=== PATIENT | female | born 1970 | race African-American/Black ===

== ENCOUNTER 2017-01-07 13:45 | Emergency (ER) | payer MEDICARE, OTHER ==
[~2017-01-07] VITALS: Ht 162.6 cm; Wt 100.0 kg
[~2017-01-07 13:45] MED LIST: MEDR150P IM; NAPR500 PO
[2017-01-07 14:01] VITALS: BP 175/81; PULSE 76; RESP 16; TEMP 97.1; O2SAT 98
--- NOTE | 2017-01-07 16:29 | PD ---
HPI Chief Complaint: Cold / Flu Symptoms Time Seen by Provider: 16:29 Travel History International Travel<30 days: No Contact w/Intl Traveler<30days: No Traveled to known affect area: No History of Present Illness HPI 46-year-old female presents to the emergency Department with complaint of nasal congestion, cough, throat irritation, sneezing since yesterday. Denies fever, chills, nausea, vomiting. Reports voice is hoarse. Denies lump in throat, difficulty swallowing, unusual drooling. Denies chest pain, chest tightness, shortness of breath. Denies wheezing. Has not taking any medications or tried any treatments to alleviate her symptoms. Her son is sick with similar symptoms and was seen yesterday and diagnosed with bronchitis. No known relieving or aggravating factors. Allergies to Darvocet and Lortab. Denies significant past medical history. No other modifying factors or associated signs and symptoms. PFSH Past Medical History Arthritis: Yes Blood Disorders: No Cancer: No Cardiovascular Problems: Yes (ASD REPA[employer] INFANT) Diminished Hearing: No Endocrine: No Gastrointestinal Disorders: No Genitourinary: No Hepatitis: Yes (HEPITITIS B) Immune Disorder: No Musculoskeletal: No Neurologic: No Psychiatric: No Reproductive: No Respiratory: No ?: Not LMP: 12/30/16 Menopausal: No : 3 Para: 2 Miscarriage: 0 : 0 Ectopic : No Ovarian Cysts: No Dilation and Curettage (D&C): Yes Tubal Ligation: No Past Surgical History Cardiac Surgery: Yes ("hole in heart) Section: No Gynecologic Surgery: Yes ( 2000) Hysterectomy: No Other Surgery: Yes Social History Alcohol Use: No Tobacco Use: No Substance Use: No Allergies-Medications (Allergen,Severity, Reaction): Coded Allergies: Darvocet-N 100 (Verified Allergy, Unknown, 01/07/17) Lortab (Verified Adverse Reaction, Mild, Itching, 01/07/17) denies Reported Meds & Prescriptions Reported Meds & Active Scripts Active Tessalon Perles (Benzonatate) 100 Mg Cap 100 Mg PO TID PRN Nasonex Nasal [place] (Mometasone Furoate) 50 Mcg/Act Naspr 2 [place] EACH NARE DAILY PRN Naprosyn (Naproxen) 500 Mg Tab 500 Mg PO Q12HR PRN Depoprovera 150 Mg Vial (Medroxyprogesterone Acetate) 150 Mg/Ml Susp 150 Mg IM Q90D Review of Systems Except as stated in HPI: all other systems reviewed are Neg Physical Exam Narrative GENERAL: Well-nourished, well-developed [place] female patient, in no acute distress; afebrile, nontoxic-appearing SKIN: Warm and dry. No rash. HEAD: Atraumatic. Normocephalic. EYES: Pupils equal and round at 3 mm with brisk reaction. No scleral icterus. No injection or drainage. PERRLA. ENT: Mucosa pink and moist. No erythema or exudates. No uvular edema. No uvular , palatal, or tonsillar deviation. Airway patent. Voice is hoarse. EARS: Bilateral pinnae and external canals appear within normal limits. Bilateral tympanic membranes without erythema, dullness or perforation. NECK: Trachea midline. No anterior cervical lymphadenopathy or tenderness on palpation. CARDIOVASCULAR: Regular rate and rhythm. No murmur appreciated. RESPIRATORY: No accessory muscle use. Clear to auscultation. Breath sounds equal bilaterally. GASTROINTESTINAL: Abdomen soft, non-tender, nondistended. Hepatic and splenic margins not palpable. Bowel sounds are active 4 quadrants. MUSCULOSKELETAL: No obvious deformities. No clubbing. No cyanosis. No edema. NEUROLOGICAL: Awake and alert. Oriented 3. No obvious cranial nerve deficits. Motor grossly within normal limits. Normal speech. Moves all extremities. 5/5 strength to all extremities. PSYCHIATRIC: Appropriate mood and affect; insight and judgment normal. Data Data Last Documented VS Vital Signs Date Time Temp Pulse Resp B/P Pulse Ox O2 Delivery O2 Flow Rate FiO2 01/07/17 15:46 Room Air 01/07/17 14:01 97.1 76 16 175/[address] [facility] Medical Decision Making Medical Screen Exam Complete: Yes Emergency Medical Condition: Yes Medical Record Reviewed: Yes Differential Diagnosis Viral illness, bronchitis, sinusitis Narrative Course 46-year-old female physical examination consistent with viral illness. She is afebrile and nontoxic-appearing. Lungs are clear and equal throughout. Discussed viral illness and symptom management and patient verbalizes understanding and agreement. Tessalon Perles, Nasonex nasal spray prescribed for home. Patient is medically cleared and stable for discharge. Discussed reasons to return to the emergency department. Instructed patient to follow up with primary care provider. Patient agrees with treatment plan. The patients vital signs are stable and the patient is stable for outpatient follow-up and treatment. Patient discharged home, stable and in no acute distress. Diagnosis Primary Impression: Viral illness Referrals: Primary Care Physician Patient Instructions: Cold Symptoms (ED), General Instructions, Safe Use of Cough and Cold Medicines (ED) Departure Forms: Tests/Procedures, Work Release Enter return to work date: Jan 09, 2017 Additional Instructions: Ibuprofen or Tylenol as instructed and as needed for fever/pain [id number] cough and cold medications as directed and as needed for symptom management Get plenty of sleep/rest Drink plenty of fluids to prevent dehydration; popsicles and Gatorade Use an air humidifier/turn off ceiling fans Follow-up with primary care provider Return immediately to the emergency department with worsening of symptoms Med/Other Pt SpecificInfo: Prescription(s) given Scripts Benzonatate (Tessalon Perles)100 Mg [id number] Mg PO TID PRN (COUGH) #20 CAP Ref 0 Prov:Karina Hwang 01/07/17 Mometasone Nasal [place] (Nasonex Nasal [place])50 Mcg/Act Naspr2 [place] EACH NARE DAILY PRN (NASAL CONGESTION) #1 BOTTLE Ref 0 Prov:Karina Hwang 01/07/17 Disposition: 01 DISCHARGE HOME Condition: Stable Karina Hwang Jan 07, 2017 16:29
[2017-01-07] MEDS ORDERED: MOME17I EACH NARE (16:36)
[2017-01-07] MEDS ORDERED: BENZ100 PO (16:36)
== END 2017-01-07 17:13 | disposition home or self-care (01) ==
LOC: NEPB 13:45
DX: B34.9 Viral infection, unspecified (principal)
CPT/HCPCS: 99283

== ENCOUNTER 2017-09-30 17:32 | Emergency (ER) | payer MEDICARE, OTHER ==
[~2017-09-30] VITALS: Ht 165.1 cm; Wt 110.0 kg
[~2017-09-30 17:32] MED LIST changes: +BENZ100 PO; +MOME17I EACH NARE
[2017-09-30 17:34] VITALS: BP 139/91; PULSE 92; RESP 26; TEMP 98.7; O2SAT 100
--- NOTE | 2017-09-30 18:09 | PD ---
HPI Chief Complaint: Chest Pain Time Seen by Provider: 17:53 Travel History International Travel<30 days: No Contact w/Intl Traveler<30days: No Traveled to known affect area: No History of Present Illness HPI The patient was seen and examined in the presence of the nurse. This patient complains of chest pain. Started last night. Duration is one day. She reports severity is moderate however, she is sound asleep in the room when I go into evaluate her. During questioning she nods off and falls asleep. She denies any sedating medication. She says is because she didn't get much sleep last night. Pain is readily reproducible with palpation in the right upper chest. There is no left-sided pain is not exertional. It's not pleuritic. No alleviating factors. Pain is exacerbated with pressure on the chest wall PFSH Past Medical History Arthritis: Yes Blood Disorders: No Cancer: No Cardiovascular Problems: Yes Diminished Hearing: No Endocrine: No Gastrointestinal Disorders: No Genitourinary: No Hepatitis: Yes (HEPITITIS B) Immune Disorder: No Musculoskeletal: No Neurologic: No Psychiatric: No Reproductive: No Respiratory: No ?: Not Menopausal: No : 3 Para: 2 Miscarriage: 0 : 0 Ectopic : No Ovarian Cysts: No Dilation and Curettage (D&C): Yes Tubal Ligation: No Past Surgical History Cardiac Surgery: Yes ("hole in heart) Section: No Gynecologic Surgery: Yes ( 2000) Hysterectomy: No Other Surgery: Yes Social History Alcohol Use: No Tobacco Use: No Substance Use: No Allergies-Medications (Allergen,Severity, Reaction): Coded Allergies: acetaminophen (Unverified Allergy, Unknown, 07/03/17) propoxyphene (Unverified Allergy, Unknown, 07/03/17) hydrocodone (Unverified Adverse Reaction, Mild, Itching, 07/03/17) denies Reported Meds & Prescriptions Reported Meds & Active Scripts Active Tessalon Perles (Benzonatate) 100 Mg Cap 100 Mg PO TID PRN Nasonex Nasal [place] (Mometasone Furoate) 50 Mcg/Act Naspr 2 [place] EACH NARE DAILY PRN Naprosyn (Naproxen) 500 Mg Tab 500 Mg PO Q12HR PRN Depoprovera 150 Mg Vial (Medroxyprogesterone Acetate) 150 Mg/Ml Susp 150 Mg IM Q90D Review of Systems General / Constitutional: No: Fever Eyes: No: Visual changes HENT: No: Headaches Cardiovascular: Positive: Chest Pain or Discomfort Respiratory: No: Shortness of Breath Gastrointestinal: No: Abdominal Pain Genitourinary: No: Dysuria Musculoskeletal: No: Pain Skin: No Rash Neurologic: No: Weakness Psychiatric: No: Depression Endocrine: No: Polydipsia Hematologic/Lymphatic: No: Easy Bruising Physical Exam Narrative GENERAL: Well-nourished, well-developed patient in no apparent distress. SKIN: Focused skin assessment reveals no rash and nodules. Skin is Warm and dry. HEAD: Atraumatic. Normocephalic. EYES: Pupils equal and round. No scleral icterus. No injection or drainage. ENT: No nasal bleeding or discharge. Mucous membranes pink and moist. NECK: Trachea midline. No JVD. CARDIOVASCULAR: Regular rate and rhythm. No murmur appreciated. RESPIRATORY: No accessory muscle use. Clear to auscultation. Breath sounds equal bilaterally. GASTROINTESTINAL: Abdomen soft, non-tender, nondistended. Hepatic and splenic margins not palpable. MUSCULOSKELETAL: No obvious deformities. No clubbing. No cyanosis. No edema. Readily reproducible right upper chest wall tenderness NEUROLOGICAL: Awake and alert. No obvious cranial nerve deficits. Motor grossly within normal limits. Normal speech. PSYCHIATRIC: Appropriate mood and affect; insight and judgment normal. Data Data Last Documented VS Vital Signs Date Time Temp Pulse Resp B/P (MAP) Pulse Ox O2 Delivery O2 Flow Rate FiO2 09/30/17 17:45 96 Room Air 09/30/17 17:34 98.7 92 26 139/91 (107) Orders Orders Electrocardiogram (09/30/17 ) Chest, Single Ap (09/30/17 ) Ed Discharge Order (09/30/17 18:53) [facility] Medical Decision Making Medical Screen Exam Complete: Yes Emergency Medical Condition: Yes Medical Record Reviewed: Yes Differential Diagnosis Differential diagnosis includes AK, angina, pericarditis, pleurisy, GERD, anxiety. Narrative Course I have reviewed the patient's electronic medical record. I reviewed her EKG which shows sinus rhythm and no ST elevation or ectopy I reviewed her chest x-ray which is negative for acute process I went to reevaluate her once again she is sound asleep Her chest pain is clearly musculoskeletal and noncardiac It's readily reproducible on palpation Recommend she follow up with primary care to discuss it Diagnosis Primary Impression: Musculoskeletal chest pain Additional Instructions: The patient was advised to follow up with their physician and return if they worsen. Med/Other Pt SpecificInfo: Other Disposition: 01 DISCHARGE HOME Condition: Stable Nino Vasquez MD Sep 30, 2017 18:09
--- NOTE | 2017-09-30 18:23 | RADRPT ---
EXAM DATE/TIME: 09/30/2017 18:06 [facility] COMPARISON: No previous studies available for comparison. INDICATIONS : Cough, chest pain, congestion for 2 days. MEDICAL HISTORY : None. SURGICAL HISTORY : Open heart ENCOUNTER: Initial ACUITY: 2 days PAIN SCORE: 9/10 LOCATION: middle Chest FINDINGS: Portable AP view of the chest demonstrates a normal-sized cardiac silhouette. No effusion, consolidat ion, or pneumothorax is visualized. The bones and soft tissues demonstrate no acute abnormality. Lung s are underinflated with mild atelectasis at the bases. EKG lines overlie the patient. Sternotomy wir es are present. CONCLUSION: Underinflated examination mild atelectasis at the lung bases. Otherwise, no acute cardiopulmonary abn ormality is identified. Vicente Melendez MD on September 30, 2017 at 18:20 Board Certified Radiologist. This report was verified electronically.
--- NOTE | 2017-10-01 19:33 | EKG ---
Date Performed: 09/30/2017 Time Performed: 18:05:43 PTAGE: 46 years EKG: Sinus rhythm POSSIBLE LEFT ATRIAL ENLARGEMENT POSSIBLE RIGHT VENTRICULAR CONDUCTION DELAY NONSPECIFIC T-WAVE ABNO RMALITY BORDERLINE ECG Since PREVIOUS TRACING , no significant change noted PREVIOUS TRACIN08/20/2010 11.06 DOCTOR: Tracey Yanez Interpretating Date/Time 10/01/2017 19:32:09
== END 2017-09-30 20:05 | disposition home or self-care (01) ==
LOC: NEPE 17:32
DX: R07.89 Other chest pain (principal); R94.31 Abnormal electrocardiogram [ECG] [EKG]
CPT/HCPCS: 71010; 93005

== ENCOUNTER 2017-11-17 15:14 | Emergency (ER) | payer MEDICARE, OTHER ==
[~2017-11-17] VITALS: Ht 165.1 cm; Wt 108.0 kg
[2017-11-17 15:17] VITALS: BP 131/71; PULSE 89; RESP 15; TEMP 99.4; O2SAT 98
[2017-11-17] MEDS ORDERED: SODIUM CHLORID 0.9% 500 ML INJ 500 ML IV ONE (15:45)
[2017-11-17] MEDS ORDERED: DEXAMETHASONE SOD PHOS 4 MG/ML VIAL IV PUSH ONE (15:45)
[2017-11-17] MEDS ORDERED: SODIUM CHLORIDE 0.9% FLUSH 10 ML FLUSH IVF PRN (15:45)
[2017-11-17] MEDS ORDERED: DIAZEPAM 5 MG TAB PO ONE (15:45)
[2017-11-17] MEDS ORDERED: MORPHINE SULFATE 4 MG/ML INJ IV PUSH ONE (15:45)
[2017-11-17 15:50] VITALS: BP_SYST 102; BP_SYST 120; BP_DIAS 80; BP_DIAS 83; PULSE 82; RESP 19; O2SAT 98
--- NOTE | 2017-11-17 15:52 | PD ---
HPI Chief Complaint: Chest Pain Time Seen by Provider: 15:30 Travel History International Travel<30 days: No Contact w/Intl Traveler<30days: No Traveled to known affect area: No History of Present Illness HPI The patient is a 47-year-old [place] female who presents emergency department for right sided neck pain and shoulder pain of 2 days' duration. The patient states she developed some right sided neck pain over the right clavicle and right trapezius 2 days ago. The pain is worse when she rotates her head to the right as well as certain movements of the right upper extremity. The pain is sharp, pulsating, feels like muscle spasms. She is had similar muscle spasms in the past, however, has not had an to this extent. She denies any left-sided chest pain, shortness of breath, nausea, vomiting, or diaphoresis. She also complains of bilateral lower extremity edema for 4 days. Edema is worse during the day, slightly better upon waking in the morning. She does have a history of similar edema in the past, denies any history DVT or pulmonary embolism. The patient's symptoms are moderate, worsen movement, and there are no current alleviating factors. PFSH Past Medical History Arthritis: Yes Blood Disorders: No Cancer: No Cardiovascular Problems: Yes Diminished Hearing: No Endocrine: No Gastrointestinal Disorders: No Genitourinary: No Hepatitis: Yes (HEPITITIS B) Immune Disorder: No Musculoskeletal: No Neurologic: No Psychiatric: No Reproductive: No Respiratory: No ?: Not LMP: 10/31/17 Menopausal: No : 3 Para: 2 Miscarriage: 0 : 0 Ectopic : No Ovarian Cysts: No Dilation and Curettage (D&C): Yes Tubal Ligation: No Past Surgical History Cardiac Surgery: Yes ("hole in heart) Section: Yes Gynecologic Surgery: Yes ( 2000) Hysterectomy: No Other Surgery: Yes Social History Alcohol Use: No Tobacco Use: No Substance Use: No Allergies-Medications (Allergen,Severity, Reaction): Coded Allergies: propoxyphene (Unverified Allergy, Unknown, 11/17/17) Reported Meds & Prescriptions Reported Meds & Active Scripts Active No Active Prescriptions or Reported Medications Review of Systems Except as stated in HPI: all other systems reviewed are Neg HENT: Positive: Neck Pain, No: Headaches, Neck Stiffness Cardiovascular: No: Chest Pain or Discomfort, Diaphoresis Respiratory: No: Shortness of Breath Gastrointestinal: No: Nausea, Vomiting Musculoskeletal: Positive: Limited ROM, Edema, Pain Skin: No Rash Neurologic: No: Paresthesia, Sensory Disturbance Physical Exam Narrative GENERAL: Awake, alert, pleasant 47 year-old female who appears her stated age and is in no acute respiratory distress. SKIN: Focused skin assessment warm/dry. HEAD: Atraumatic. Normocephalic. EYES: Pupils equal and round. No scleral icterus. No injection or drainage. ENT: No nasal bleeding or discharge. Mucous membranes pink and moist. NECK: Trachea midline. No JVD. Tenderness to palpation of the right paravertebral muscle, the right trapezius, and right clavicle. CARDIOVASCULAR: Regular rate and rhythm. No murmur appreciated. RESPIRATORY: No accessory muscle use. Clear to auscultation. Breath sounds equal bilaterally. GASTROINTESTINAL: Abdomen soft, non-tender, nondistended. MUSCULOSKELETAL: Bilateral lower extremity pitting edema. Patient is able to extend her right arm to 30, is able to abduct to 30, but full range of motion right upper extremity cannot be performed secondary to pain of the right shoulder and right neck with movement. Positive right radial pulse. I am able to passively abduct to 90 and internally and externally rotate the right shoulder with minimal exacerbation of pain. No tenderness over the right scapula muscles or thoracic lumbar paravertebral muscles. NEUROLOGICAL: Awake and alert. No obvious cranial nerve deficits. Motor grossly within normal limits. Normal speech. Sensation is intact over the radial, ulnar, medial distribution of the right upper extremity. PSYCHIATRIC: Appropriate mood and affect; insight and judgment normal. Data Data Last Documented VS Vital Signs Date Time Temp Pulse Resp B/P (MAP) Pulse Ox O2 Delivery O2 Flow Rate FiO2 11/17/17 15:50 (89) 98 Room Air 11/17/17 15:50 82 19 11/17/17 15:17 99.4 Orders Orders Electrocardiogram (11/17/17 15:41) Ckmb (Isoenzyme) Profile (11/17/17 15:41) Complete Blood Count With Diff (11/17/17 15:41) Comprehensive Metabolic Panel (11/17/17 15:41) Magnesium (Mg) (11/17/17 15:41) Prothrombin Time / Inr (Pt) (11/17/17 15:41) Act Partial Throm Time (Ptt) (11/17/17 15:41) Troponin I (11/17/17 15:41) Chest, Single Ap (11/17/17 15:41) Ecg Monitoring (11/17/17 15:41) Bilateral Bp Monitoring (11/17/17 15:41) Iv Access Insert/Monitor (11/17/17 15:41) Oximetry (11/17/17 15:41) Oxygen Administration (11/17/17 15:41) Sodium Chloride 0.9% Flush (Ns Flush) (11/17/17 15:45) Sodium Chlorid 0.9% 500 Ml Inj (Ns 500 M (11/17/17 15:45) Dexamethasone Inj (Decadron Inj) (11/17/17 15:45) Diazepam (Valium) (11/17/17 15:45) Morphine Inj (Morphine Inj) (11/17/17 16:30) Labs Laboratory Tests Test 11/17/17 15:53 White Blood Count 8.0 TH/MM3 Red Blood Count 4.33 MIL/MM3 Hemoglobin 13.0 GM/DL Hematocrit 37.7 % Mean Corpuscular Volume 87.2 FL Mean Corpuscular Hemoglobin 30.1 PG Mean Corpuscular Hemoglobin Concent 34.5 % Red Cell Distribution Width 14.0 % Platelet Count 150 TH/MM3 Mean Platelet Volume 13.1 FL Neutrophils (%) (Auto) 60.1 % Lymphocytes (%) (Auto) 23.7 % Monocytes (%) (Auto) 12.6 % Eosinophils (%) (Auto) 2.8 % Basophils (%) (Auto) 0.8 % Neutrophils # (Auto) 4.8 TH/MM3 Lymphocytes # (Auto) 1.9 TH/MM3 Monocytes # (Auto) 1.0 TH/MM3 Eosinophils # (Auto) 0.2 TH/MM3 Basophils # (Auto) 0.1 TH/MM3 CBC Comment AUTO DIFF Prothrombin Time 10.4 SEC Prothromb Time International Ratio 1.0 RATIO Activated Partial Thromboplast Time 25.4 SEC Blood Urea Nitrogen 7 MG/DL Creatinine 0.82 MG/DL Random Glucose 97 MG/DL Total Protein 8.0 GM/DL Albumin 3.6 GM/DL Calcium Level 8.3 MG/DL Magnesium Level 1.8 MG/DL Alkaline Phosphatase 72 U/L Aspartate Amino Transf (AST/SGOT) 9 U/L Alanine Aminotransferase (ALT/SGPT) 12 U/L Total Bilirubin 0.4 MG/DL Sodium Level 140 MEQ/L Potassium Level 3.8 MEQ/L Chloride Level 105 MEQ/L Carbon Dioxide Level 28.2 MEQ/L Anion Gap 7 MEQ/L Estimat Glomerular Filtration Rate 91 ML/MIN Total Creatine Kinase 87 U/L Troponin I LESS THAN 0.02 NG/ML MDM Medical Decision Making Medical Screen Exam Complete: Yes Emergency Medical Condition: Yes Medical Record Reviewed: Yes Interpretation(s) EKG reveals normal sinus rhythm with a rate of 79. Incomplete right bundle branch block. [id number]. Laboratory Tests Test 11/17/17 15:53 White Blood Count 8.0 TH/MM3 Red Blood Count 4.33 MIL/MM3 Hemoglobin 13.0 GM/DL Hematocrit 37.7 % Mean Corpuscular Volume 87.2 FL Mean Corpuscular Hemoglobin 30.1 PG Mean Corpuscular Hemoglobin Concent 34.5 % Red Cell Distribution Width 14.0 % Platelet Count 150 TH/MM3 Mean Platelet Volume 13.1 FL Neutrophils (%) (Auto) 60.1 % Lymphocytes (%) (Auto) 23.7 % Monocytes (%) (Auto) 12.6 % Eosinophils (%) (Auto) 2.8 % Basophils (%) (Auto) 0.8 % Neutrophils # (Auto) 4.8 TH/MM3 Lymphocytes # (Auto) 1.9 TH/MM3 Monocytes # (Auto) 1.0 TH/MM3 Eosinophils # (Auto) 0.2 TH/MM3 Basophils # (Auto) 0.1 TH/MM3 CBC Comment AUTO DIFF Prothrombin Time 10.4 SEC Prothromb Time International Ratio 1.0 RATIO Activated Partial Thromboplast Time 25.4 SEC Blood Urea Nitrogen 7 MG/DL Creatinine 0.82 MG/DL Random Glucose 97 MG/DL Total Protein 8.0 GM/DL Albumin 3.6 GM/DL Calcium Level 8.3 MG/DL Magnesium Level 1.8 MG/DL Alkaline Phosphatase 72 U/L Aspartate Amino Transf (AST/SGOT) 9 U/L Alanine Aminotransferase (ALT/SGPT) 12 U/L Total Bilirubin 0.4 MG/DL Sodium Level 140 MEQ/L Potassium Level 3.8 MEQ/L Chloride Level 105 MEQ/L Carbon Dioxide Level 28.2 MEQ/L Anion Gap 7 MEQ/L Estimat Glomerular Filtration Rate 91 ML/MIN Total Creatine Kinase 87 U/L Troponin I LESS THAN 0.02 NG/ML Chest x-ray reveals no acute cardiopulmonary disease. Differential Diagnosis Differential diagnosis includes muscle spasm, neck strain, Pancoast tumor, rotator cuff injury, neuropathy, subclavian steal syndrome. Narrative Course IV was established, labs are drawn and sent, and the patient was placed on cardiac telemetry monitoring and continuous pulse oximetry monitoring. Chest x- ray was obtained. EKG was ordered and interpreted. The patient's lower extremity edema most likely is dependent edema, patient is advised elevate, wear SUDHA hose as needed. The patient's right sided right clavicle and shoulder pain appears to be muscle spasm and nature. Chest x-ray was obtained to rule out Pancoast tumor. EKG was ordered and interpreted. The patient was administered Decadron, morphine, and Zofran. EKG reveals incomplete right bundle branch block, patient has no hypoxia and is no tachycardia. The patient also has no shortness of breath, I doubt pulmonary embolism. Chest x-ray was unremarkable. Patient's troponin is less than 0.02. The patient's pain is reproducible with movement and palpation, most likely musculoskeletal in origin. The patient will be discharged home with a Medrol Dosepak, pain medication and muscle relaxers. She is advised to follow-up with her primary physician. She is also advised elevate her legs wear SUDHA hose for the dependent edema. Diagnosis Primary Impression: Neck strain Qualified Codes: S16.1XXA - Strain of muscle, fascia and tendon at neck level , initial encounter Additional Impression: Dependent edema Patient Instructions: General Instructions Additional Instructions: Elevate legs. Compression stockings as needed. Medications as directed. Ice and/or heat to the right neck and shoulder as needed. Soft cervical collar as needed. Follow-up with your primary physician. Please provide the patient a copy of her x-ray results and lab results at discharge. Return if symptoms worsen or progress. Med/Other Pt SpecificInfo: Prescription(s) given Scripts Hydrocodone-Acetaminophen ([place]) 5 Mg-325 Mg Tab 1 TAB PO Q6H Y for PAIN, #15 TAB 0 Refills Prov: Anthony Ibarra MD 11/17/17 Cyclobenzaprine (Flexeril) 10 Mg Tab 10 MG PO TID for Muscle Spasm for 10 Days, #30 TAB 0 Refills Prov: Anthony Ibarra MD 11/17/17 Methylprednisolone Dosepak (Medrol Dosepak) 4 Mg Dspk 4 MG PO DIRECTED, #1 DSPK 0 Refills Per Pharmacist direction Prov: Anthony Ibarra MD 11/17/17 Disposition: 01 DISCHARGE HOME Condition: Stable Anthony Ibarra MD Nov 17, 2017 15:52
[2017-11-17 16:21] LABS: AUTOMATED NEUTROPHIL # 4.8 TH/MM3 (1.8-7.7); BASOPHIL # 0.1 TH/MM3 (0-0.2); BASOPHIL % 0.8 % (0.0-2.0); EOSINOPHIL # 0.2 TH/MM3 (0-0.4); EOSINOPHIL % 2.8 % (0.0-4.0); HEMATOCRIT 37.7 % (35.0-46.0); LYMPH % 23.7 % (9.0-44.0); LYMPHOCYTE # 1.9 TH/MM3 (1.0-4.8); MEAN CELL VOLUME 87.2 FL (80.0-100.0); MEAN CORPUSCULAR HEMOGLOBIN 30.1 PG (27.0-34.0); MEAN CORPUSCULAR HGB CONC 34.5 % (32.0-36.0); MEAN PLATELET VOLUME 13.1 FL (7.0-11.0); MONO % 12.6 % (0.0-8.0); NEUT % 60.1 % (16.0-70.0); PLATELET COUNT 150 TH/MM3 (150-450); RED BLOOD COUNT 4.33 MIL/MM3 (4.00-5.30)
[2017-11-17] MEDS ORDERED: MORPHINE SULFATE 2 MG/ML INJ IV ONE (16:30)
[2017-11-17 16:42] LABS: ALBUMIN 3.6 GM/DL (3.4-5.0); AST (GOT) 9 U/L (15-37); BICARBONATE 28.2 MEQ/L (21.0-32.0); BLOOD UREA NITROGEN 7 MG/DL (7-18); CALCIUM 8.3 MG/DL (8.5-10.1); CHLORIDE 105 MEQ/L (98-107); CREATININE 0.82 MG/DL (0.50-1.00); GLOMERULAR FILTRATION RATE 91 ML/MIN (>89); GLUCOSE,RANDOM 97 MG/DL (74-106); MAGNESIUM 1.8 MG/DL (1.5-2.5); SODIUM (NA) 140 MEQ/L (136-145)
[2017-11-17 16:47] LABS: ALKALINE PHOSPHATASE 72 U/L (45-117); ALT (GPT) 12 U/L (10-53); TOTAL BILIRUBIN ADULT 0.4 MG/DL (0.2-1.0); TROPONIN I LESS THAN 0.02 NG/ML (0.02-0.05)
[2017-11-17 16:53] LABS: PROTHROMBIN TIME - PATIENT 10.4 SEC (9.8-11.6)
[2017-11-17] MEDS ORDERED: NORC5TAB PO (16:58)
[2017-11-17] MEDS ORDERED: CYCL10TA PO (16:58)
[2017-11-17] MEDS ORDERED: MEDR4PAK PO (16:58)
--- NOTE | 2017-11-17 16:59 | RADRPT ---
EXAM DATE/TIME: 11/17/2017 16:31 [facility] COMPARISON: CHEST SINGLE AP, September 30, 2017, 18:06. INDICATIONS : Shortness of breath. MEDICAL HISTORY : None. SURGICAL HISTORY : None. ENCOUNTER: Initial ACUITY: 4 - 6 days PAIN SCORE: 0/10 LOCATION: Bilateral chest FINDINGS: The lungs are clear without infiltrate, nodule, or mass. There is no appreciable pleural effusion fo r technique. Heart and mediastinum are unremarkable. CONCLUSION: No acute cardiopulmonary disease. Zaid Pearce MD on November 17, 2017 at 16:57 Board Certified Radiologist. This report was verified electronically.
[2017-11-17] MEDS ORDERED: ZANT150T2 PO (17:41)
--- NOTE | 2017-11-17 21:55 | EKG ---
Date Performed: 11/17/2017 Time Performed: 15:58:07 PTAGE: 47 years EKG: Sinus rhythm LOW QRS VOLTAGE IN PRECORDIAL LEADS INCOMPLETE RIGHT BUNDLE BRANCH BLOCK BORDERLINE ECG PREVIOUS TRACING : 09/30/2017 18.05 Compared to prior tracing no significant change DOCTOR: Bob Aleman Interpretating Date/Time 11/17/2017 21:53:41
== END 2017-11-17 18:10 | disposition home or self-care (01) ==
LOC: NEPE 15:14
DX: S16.1XXA Strain of muscle, fascia and tendon at neck level, initial encounter (principal); R60.0 Localized edema; I45.10 Unspecified right bundle-branch block; X58.XXXA Exposure to other specified factors, initial encounter
CPT/HCPCS: 71010; 80053; 82550; 83735; 84484; 85025; 85610; 85730; 93005; 96374; 96375; 99284; J1100; J2270; J7040

== ENCOUNTER 2018-05-12 20:12 | Emergency (ER) | payer MEDICARE, MEDICAID ==
[~2018-05-12] VITALS: Ht 157.5 cm; Wt 82.0 kg
[~2018-05-12 20:12] MED LIST changes: -BENZ100 PO; +CYCL10TA PO; -MEDR150P IM; +MEDR4PAK PO; -MOME17I EACH NARE; -NAPR500 PO; +NORC5TAB PO; +ZANT150T2 PO
[2018-05-12 20:20] VITALS: BP 140/81; PULSE 88; RESP 20; TEMP 97.7; O2SAT 99
--- NOTE | 2018-05-12 20:43 | PD ---
HPI Chief Complaint: Headache Time Seen by Provider: 20:37 Travel History International Travel<30 days: No Contact w/Intl Traveler<30days: No Traveled to known affect area: No History of Present Illness HPI 47-year-old female with history of migraine headaches, presents emergency department for evaluation of a headache that has persisted 2 days. Patient reports it is typical of her usual migraine. She has associated nausea. No vomiting. She denies any focal deficits or weakness. She states the over-the- counter NSAIDs she has attempted are not working for her pain. She reports mild photophobia. She has not been recently ill. She denies fever. She denies chest pain or tightness. No shortness of breath. Patient does report bilateral lower extremity edema. States that this happens occasionally. She has been eating high sodium diet. She is followed at the [facility] and tells me that she has been told in the past that she needs to be started on water pills. Again she denies any chest pain or shortness of breath. she has no other symptoms to report at this time. 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) Section: Yes Gynecologic Surgery: Yes ( 2000) Hysterectomy: No Other Surgery: Yes Social History Alcohol Use: No Tobacco Use: No Substance Use: No Allergies-Medications (Allergen,Severity, Reaction): Coded Allergies: propoxyphene (Unverified Allergy, Unknown, 05/12/18) Reported Meds & Prescriptions Reported Meds & Active Scripts Active Zantac (Ranitidine HCl) 150 Mg Tab 150 Mg PO BID [place] (Hydrocodone-Acetaminophen) 5 Mg-325 Mg Tab 1 Tab PO Q6H PRN Flexeril (Cyclobenzaprine HCl) 10 Mg Tab 10 Mg PO TID 10 Days Medrol Dosepak (Methylprednisolone) 4 Mg Dspk 4 Mg PO DIRECTED Per Pharmacist direction Review of Systems Except as stated in HPI: all other systems reviewed are Neg Physical Exam Narrative GENERAL: Well-nourished female patient, lying in bed, in no acute distress. SKIN: Focused skin assessment warm/dry. HEAD: Atraumatic. Normocephalic. EYES: Pupils equal and round. No scleral icterus. No injection or drainage. EOMI. ENT: No nasal bleeding or discharge. Mucous membranes pink and moist. NECK: Trachea midline. No JVD. No nuchal rigidity. CARDIOVASCULAR: Regular rate and rhythm. No murmur appreciated. RESPIRATORY: No accessory muscle use. Clear to auscultation. Breath sounds equal bilaterally. GASTROINTESTINAL: Abdomen soft, non-tender, nondistended. Hepatic and splenic margins not palpable. MUSCULOSKELETAL: No obvious deformities. No clubbing. No cyanosis. No edema. NEUROLOGICAL: Awake and alert. No obvious cranial nerve deficits. Motor grossly within normal limits. Normal speech. PSYCHIATRIC: Appropriate mood and affect; insight and judgment normal. Data Data Last Documented VS Vital Signs Date Time Temp Pulse Resp B/P (MAP) Pulse Ox O2 Delivery O2 Flow Rate FiO2 05/12/18 20:20 97.7 88 20 140/81 (100) 99 Orders Orders Iv Access Insert/Monitor (05/12/18 20:42) Sodium Chlor 0.9% 1000 Ml Inj (Ns 1000 M (05/12/18 20:45) Ketorolac Inj (Toradol Inj) (05/12/18 20:45) Prochlorperazine Inj (Compazine Inj) (05/12/18 20:45) Diphenhydramine Inj (Benadryl Inj) (05/12/18 20:45) MDM Medical Decision Making Medical Screen Exam Complete: Yes Emergency Medical Condition: Yes Medical Record Reviewed: Yes Differential Diagnosis Migraine headache with or without aura versus sinus headache versus tension headache versus dehydration versus electrolyte abnormality Narrative Course 47-year-old female presents emergency department for evaluation of a migraine headache persisted 2 days. Patient states this is typical of her usual migraine headache. She appears well. Neuro exam is nonfocal. Patient's lower extremity edema has been evaluated in the past and she already has outpatient follow-up for this. I have counseled her on reducing sodium intake and elevating her lower extremities in the meantime. Patient is given IV normal saline bolus, Toradol, Compazine, Benadryl. Upon reassessment, patient verbalizes symptom relief. She will be discharged at this time. Diagnosis Primary Impression: Head ache Qualified Codes: R51 - Headache Additional Impression: Dependent edema Referrals: Primary Care Physician Patient Instructions: 2 Gram Sodium Diet (DC), Acute Headache (ED), General Instructions Additional Instructions: Elevate lower extremities to reduce swelling Reduce sodium or salt intake Follow-up with your primary care provider Maintain adequate oral hydration Return immediately with acute worsening symptoms Med/Other Pt SpecificInfo: No Change to Meds Disposition: 01 DISCHARGE HOME Condition: Stable [place] May 12, 2018 20:43
[2018-05-12] MEDS ORDERED: diphenhydrAMINE HCL 50 MG/ML VIAL IV PUSH ONE (20:45)
[2018-05-12] MEDS ORDERED: SODIUM CHLOR 0.9% 1000 ML INJ 1,000 ML IV ONE (20:45)
[2018-05-12] MEDS ORDERED: KETOROLAC TROMETHAMINE 30 MG/ML (IVP) VIAL IV PUSH ONE (20:45)
[2018-05-12] MEDS ORDERED: PROCHLORPERAZINE INJ 10 MG/2 ML VIAL IV PUSH ONE (20:45)
--- NOTE | 2018-05-12 20:54 | PD ---
Physical Exam Narrative General: The patient is a well-developed well-nourished female in no acute distress. Head and Neck exam: Head is normocephalic atraumatic. Eyes: EOMI, pupils are equal round and reactive to light. Nose: Midline septum with pink mucous membranes Mouth: Dentition unremarkable. Moist mucus membranes. Posterior oropharynx is not erythematous. No tonsillar hypertrophy. Uvula midline. Airway patent. Neck: No palpable lymphadenopathy. No nuchal rigidity. No thyromegaly. Cardiovascular: Regular rate and rhythm without murmurs, gallops, or rubs. No pulse deficit to the extremities on simultaneous auscultation and palpation of her radial artery. Lungs: Clear to auscultation bilaterally. No wheezes, rhonchi, or rales. Abdomen: Soft, without tenderness to palpation in all 4 quadrants of the abdomen. No guarding, rebound, or rigidity. Normal bowel sounds are audible. No tenderness on palpation of McBurney's point. Extremities: No clubbing or cyanosis. The patient has 1+ edema bilateral lower extremity she reports is chronic. No calf tenderness on palpation. 2+ pulses in all 4 extremities. Back: No costovertebral angle tenderness to palpation. Neurologic Exam: Cranial nerves 2-12 were intact on exam. Strength is 5/5 in all 4 extremities. No sensory deficits noted. Skin Exam: No rash noted. Intact skin that is warm and dry. Data Data Last Documented VS Vital Signs Date Time Temp Pulse Resp B/P (MAP) Pulse Ox O2 Delivery O2 Flow Rate FiO2 05/12/18 20:20 97.7 88 20 140/81 (100) 99 Orders Orders Iv Access Insert/Monitor (05/12/18 20:42) Sodium Chlor 0.9% 1000 Ml Inj (Ns 1000 M (05/12/18 20:45) Ketorolac Inj (Toradol Inj) (05/12/18 20:45) Prochlorperazine Inj (Compazine Inj) (05/12/18 20:45) Diphenhydramine Inj (Benadryl Inj) (05/12/18 20:45) Ed Discharge Order (05/12/18 21:30) [facility] Medical Record Reviewed: Yes Supervised Visit with BRANDY: Yes Narrative Course I, Dr. Hines, have reviewed the advance practice practitioner's documentation and am in agreement, met with the patient face to face, made the diagnosis, and the medical decision making was done by me. The patient was initially evaluated by Anne, the nurse practitioner. Please see their complete history and physical. *My assessment and Findings: The patient presents with a history of headache that she reports began a couple of days ago. She reports that it has been coming and going and only partially relieved with use of Excedrin or Tylenol. The patient reports a long-standing history of migraine headaches. She reports that she was first diagnosed as a teenager. She reports having a family history in her mother migraines. She reports that the headache is over her forehead this time. She reports that it is over bilateral sides of her forehead. She reports that the pain is similar to prior migraines. She reports having sensitivity to light, sound, and nausea vomiting associated with this. She denies any thunderclap quality to the headache. During the course of the patient's emergency department visit, the patient's history, examination, and differential diagnosis were reviewed with the patient. The patient was placed on a monitor car operator with oximetry and frequent blood pressure monitoring. The patient had IV access obtained. The patient was initially provided normal saline 1 L IV fluid bolus, Toradol 30 mg IV, Compazine 5 mg IV, Benadryl 25 mg IV. The patient's symptoms improved. The patient will be discharged home. The patient is resting comfortably and feels better, is alert and in no distress. The patient's results and examination findings were discussed with the patient. The repeat examination is unremarkable and benign. The history, exam, diagnostic testing, and current condition do not suggest any significant pathology to warrant further testing, continued ED treatment, admission, or surgical evaluation at this point. The vital signs have been stable. The patient does not have uncontrollable pain, intractable vomiting, or other significant symptoms. The patient's condition is stable and appropriate for discharge. The patient will pursue further outpatient evaluation with a primary care physician or other designated or consulting physician as indicated in the discharge instructions. The patient is instructed to report back to the emergency department immediately for reexamination in the mean time if she develops any new or worsening signs or symptoms. The patient expressed understanding and was agreeable with this plan. Diagnosis Primary Impression: Headache Qualified Codes: R51 - Headache Chandni Hines MD May 12, 2018 20:54
== END 2018-05-12 22:56 | disposition home or self-care (01) ==
LOC: NEPC 20:12
DX: R51 Headache (principal); R60.0 Localized edema; R11.0 Nausea; H53.149 Visual discomfort, unspecified; M19.90 Unspecified osteoarthritis, unspecified site
CPT/HCPCS: 96361; 96374; 96375; 99284; J0780; J1200; J1885; J7030